=== PATIENT | female | born 1995 | race Caucasian/White ===

== ENCOUNTER 2019-04-25 14:10 | Observation (INO) ==
[2019-04-25] MEDS ORDERED: RINGER'S SOLUTION,LACTATED 1,000 ML IV ONE (15:27)
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
[2019-04-25 16:31] LABS: Cocaine Ur Negative (NEGATIVE); Urine Barbiturate Negative (NEGATIVE); Urine Benzodiazepines Negative (NEGATIVE); Urine Opiates Negative (NEGATIVE); Urine PCP Negative (NEGATIVE); Urine THC Negative (NEGATIVE)
--- NOTE | 2019-04-25 17:19 | PN ---
Progess Note - Interim Date: 04/25/19 Time: 17:10 Narrative: 04/25/19 17:10 FHT shows ctx q2-3 mins, FHR has a baseline of 135, accelerations, no decelerations Obtain US to rule out abruption Abruption labs GBS collected cvx /- by RN exam. Recheck cvx in 1 hour
[2019-04-25 17:38] LABS: Hematocrit 32.3 % (37.0-47.0); Hemoglobin 11.2 gm/dL (12.5-16.0); Mean Cell Volume 93.6 fl (78-100); Mean Corpuscular Hemoglobin 32.5 pg (27-31); Mean Corpuscular Hgb Conc 34.7 g/dl (32-36); Mean Platelet Volume 10.9 fl (8-12.5); Neutrophil # 10.4 K/mm3 (1.3-6.0); Neutrophil % 73.9 % (42-75.0); Platelet Count 264 K/mm3 (150-450); Red Blood Count 3.45 M/mm3 (4.2-5.4); Red Cell Distribution Width 12.8 % (11.5-14.0); White Blood Count 14.1 K/mm3 (4.0-10.5)
[2019-04-25 17:48] LABS: Prothrombin Time (Patient) 9.4 Seconds (9.1-10.7)
[2019-04-25 17:51] LABS: INR 0.95 INR (0.92-1.08); Partial Thrombolplastin Time 25.7 Seconds (24-32)
[2019-04-26] MEDS ORDERED: CYCLOBENZAPRINE HCL 10 MG TABLET PO ONE (02:36)
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
== END 2019-04-26 10:10 | disposition home or self-care (01) ==
LOC: ER 14:10 → OB 14:26 → OBCLINIC 14:26
PROVIDERS: ADMIT Obstetrics & Gynecology; ATTEND Obstetrics & Gynecology
CPT/HCPCS: 36415; 59025; 76815; 80307; 85025; 85384; 85610; 85730; 86850; 87081; G0378